=== PATIENT | female | born 1955 | race African-American/Black ===

== ENCOUNTER 2023-07-04 13:51 | Emergency (ER) | payer MEDICARE, SELFPAY ==
--- NOTE | ~2023-07-04 | XR_ITS ---
EXAMINATION: X-RAY LEFT ANKLE and LEFT FOOT CLINICAL INFORMATION: Pain, injury. COMPARISON: None. TECHNIQUE: 2 views of the left ankle and 3 views of the left foot. FINDINGS: Left ankle: Nonspecific soft tissue swelling. No fracture or subluxation. Left foot: Malalignment of the second tarsometatarsal joint with lateral displacement of the first through fifth metatarsals. Suggestion of small fracture fragments adjacent to the second tarsometatarsal joint, binu sign . Surrounding soft tissue swelling. Moderate multifocal degenerative osteoarthritis. XR/XR ankle LT min 3V IMPRESSION: Lisfranc fracture-dislocation in the left foot.
--- NOTE | ~2023-07-04 | XR_ITS ---
EXAMINATION: X-RAY LEFT ANKLE and LEFT FOOT CLINICAL INFORMATION: Pain, injury. COMPARISON: None. TECHNIQUE: 2 views of the left ankle and 3 views of the left foot. FINDINGS: Left ankle: Nonspecific soft tissue swelling. No fracture or subluxation. Left foot: Malalignment of the second tarsometatarsal joint with lateral displacement of the first through fifth metatarsals. Suggestion of small fracture fragments adjacent to the second tarsometatarsal joint, binu sign . Surrounding soft tissue swelling. Moderate multifocal degenerative osteoarthritis. XR/XR foot LT min 3V IMPRESSION: Lisfranc fracture-dislocation in the left foot.
--- NOTE | 2023-07-04 14:00 | ED.GENADULT ---
HPI - General Adult General Chief complaint: Extremity Injury, Lower Stated complaint: FELL OFF STEP LADDER L ANKLE PAIN Time Seen by Provider: 07/04/23 13:59 Source: patient and EMS Mode of arrival: EMS Limitations: no limitations History of Present Illness HPI narrative: Patient is a 67 year old female with a history of COPD, HTN, and DM presenting to the ED for left knee, leg and foot pain after falling two steps down a step stool about an hour ago. Patient reports tenderness on the lateral side of the left ankle and describes the pain as 8/10. Patient denies feeling dizzy or lightheaded prior to the fall, does not report any head trauma, LOC, CP, nor SOB. MD complaint: Left leg pain Onset (ago): hour(s) (1) Location: left and lower extremity (Left knee to foot) Radiation: non-radiation Severity: mild Severity scale (1-10): 3 Quality: constant Pain Consistency: constant Relieving factors: none Exacerbating factors: movement Associated symptoms: denies other symptoms Treatments prior to arrival: none Related Data Previous Rx's Medication Instructions Recorded oxycodone 5 mg tablet 5 mg PO Q6H PRN pain #5 tabs 07/04/23 Allergies Allergy/AdvReac Type Severity Reaction Status Date / Time No Known Allergies Allergy Verified 07/04/23 14:00 Review of Systems Constitutional: Constitutional: Reports no additional constitutional complaints, Denies chills, Denies fever(s), Denies night sweats and Denies weakness Eyes: Eyes: Reports no additional eye complaints, Denies blurry vision, Denies change in vision, Denies diplopia, Denies eye discharge, Denies loss of vision and Denies eye pain ENT: Denies vertigo and Denies dizziness Cardiovascular: Cardiovascular: Reports no additional cardiovascular complaints, Denies chest pain, Denies lightheadedness, Denies Loss of Consciousness and Denies dyspnea Respiratory: Respiratory: Reports no additional respiratory complaints and Denies dyspnea Gastrointestinal: Gastrointestinal: Reports no additional gastrointestinal complaints, Denies abdominal pain, Denies melena, Denies hematochezia, Denies change in bowel habits and Denies change in stool character Genitourinary: Genitourinary: Denies hematuria, Denies urinary frequency, Denies dysuria, Denies urinary incontinence, Denies urinary hesitancy and Denies urinary urgency Musculoskeletal: Musculoskeletal: Denies numbness and Denies tingling Comments: left foot and ankle pain Neurologic: Denies vertigo, Denies dizziness, Denies loss of vision, Denies numbness, Denies tingling and Denies weakness Psychiatric: Psychiatric: Reports no additional psychiatric complaints Endocrine: Endocrine: Reports no additional endocrine complaints Hematologic/Lymphatic: Hematologic/Lymphatic: Reports no additional hematologic/lymphatic complaints Allergic/Immunologic: Allergic/Immunologic: Reports no additional allergic/immunologic complaints [facility] [place] Past Medical History Attestation statement: The following information was validated with the patient. Source: old records reviewed and nursing notes reviewed Social History Social History Advance Directives: No Advance Directives Information Provided: Yes Physical Exam ED Vital Signs: Vital Signs - 24 hr 07/04/23 14:34 07/04/23 16:40 Temperature 97.2 F 98.1 F Pulse Rate 73 76 Respiratory Rate 19 20 Blood Pressure 144/78 H 136/74 Pulse Oximetry 94 97 Oxygen Delivery Method Room Air Room Air BMI result Body Mass Index 37.8 Const General: cooperative, alert, awake and in distress Nutritional Appearance: average body habitus Orientation/consciousness: patient oriented x3 Limitations: no limitations HENMT Head: Yes normal to inspection Ears: hearing grossly normal bilaterally General nose exam: Normal external nose present Face and sinus: Yes normal facial exam Mouth: Normal oral and palatal mucosa present, no drooling and no muffled voice Eyes General: appearance normal, both eyes and all related structures Periorbital: periorbital findings normal Eyelids: Yes eyelids normal Conjunctivae: conjunctivae normal Pupils: Equal, round and reactive pupils present EOM: EOMs intact bilaterally Neck Neck: Yes normal visual inspection, Yes full ROM and Yes no lymphadenopathy Chest Chest palpation & inspection: normal inspection of the chest Resp Effort & Inspection: normal respiratory effort and able to speak in complete sentences Auscultation: clear to auscultation bilaterally Cardio Jugular venous distension: no JVD Palpation: normal PMI Rate: regular rate Rhythm: regular rhythm GI Inspection: Yes normal to inspection Neuro General: patient oriented x3 Cranial nerves: Yes Equal, round and reactive pupils present Cognition (Neuro): normal cognition Motor exam (neuro): 5/5 motor strength present throughout Sensory Exam: Normal double simultaneous stimulation for sensation Coordination: [id number] test normal Extrem Other: swelling present to the left ankle and dorsal left foot, pain with palpation of the dorsal left foot and with ROM of the left lower extremity General: Yes full ROM and Yes capillary refill normal Left lower extremity: normal capillary refill Psych Appearance: grossly normal Mental Status: mental status grossly normal Affect: normal affect Attitude: cooperative Thought process: Normal thought process present Thought content: Normal thought content present Insight: Good insight present (Psych) Medications Administered Discontinued Medications Generic Name Dose Route Start Last Admin Trade Name Aminata PRN Reason Stop Dose Admin Ketorolac Tromethamine 15 mg 07/04/23 15:44 07/04/23 16:51 Ketorolac Tromethamine 15 Mg/Ml Vial IM 07/04/23 15:45 15 mg ONCE ONE Administration Procedures Orthopedic Splinting/Casting Injury #1: Side: left Lower Extremity Injury Location: ankle and foot Lower Extremity Immobilizer: posterior splint Other Orthopedic Equipment: crutches Medical Decision Making Medical Decision Making MDM Narrative: Patient is a 67 year old assigned female at with a history of COPD, HTN, and DM presenting to the emergency department today with left foot and ankle pain. Patient's physical exam was as noted in the physical exam portion of this note. Patient's left foot and ankle x-rays showed a lisfranc fracture-dislocation. I consulted the orthopedic team who recommended posterior short leg splint, non weight bearing and following up with orthopedics. I explained my physical exam findings as well as all test results to the patient. I answered all questions asked by the patient. Patient's left foot was placed in a posterior short leg splint without incident. Patient's PMS was intact prior to and after splint placement. Patient was given crutches with crutch instructions. I stressed the importance of the patient taking her medication as prescribed. I stressed the importance of the patient following up with her primary care provider and an orthopedic provider. I stressed the importance of the patient returning to the emergency department immediately if her symptoms were to worsen or if she were to develop any dizziness, shortness of breath, difficulty breathing, chest pain, blurry vision, loss of vision, nausea, vomiting, abdominal pain, fever, chills, back pain, or any other complaints. Patient verbalized agreement and understanding with this treatment plan and discharge. Differential Diagnosis Differential Diagnoses: The differential diagnosis associated with the presentation includes Lisfranc fracture / dislocation Foot fracture Ankle fracture Admission/Observation Consideration of admission/observation: Escalation of care including admission/observation considered Patient would have been admitted to the hospital had her work up had any findings where hospital admission was appropriate and her clinical presentation warranted hospital admission. Consult Healthcare Provider Management of the patient was discussed with: [employer] Technician (spoke with the orthopedic provider as noted in the MDM Rationale portion of this note.) Independent Interpretation I performed an independent interpretation of an: Plain X-Ray Interpretation: My interpretation is in agreement with the radiologist's impression of these imaging studies. EXAMINATION: X-RAY LEFT ANKLE and LEFT FOOT CLINICAL INFORMATION: Pain, injury. COMPARISON: None. TECHNIQUE: 2 views of the left ankle and 3 views of the left foot. FINDINGS: Left ankle: Nonspecific soft tissue swelling. No fracture or subluxation. Left foot: Malalignment of the second tarsometatarsal joint with lateral displacement of the first through fifth metatarsals. Suggestion of small fracture fragments adjacent to the second tarsometatarsal joint, binu sign . Surrounding soft tissue swelling. Moderate multifocal degenerative osteoarthritis. XR/XR foot LT min 3V IMPRESSION: Lisfranc fracture-dislocation in the left foot. Dictated By: Olga Peters Signed By: Electronically signed by Olga Peters 07/04/23 1529 Radiology Impression Discussion of test interpretation with radiology: I have reviewed the radiologist's reading. Independent Historian Clinical information obtained from an independent historian. History obtained from or confirmed by: EMS (EMS provided additional history and confirmed the history provided by the patient.) Tests considered The following testing was considered but not selected: CT scan of the head and neck were considered given the patient is >65 years old and sustained a fall. However, the patient refused. Prescription Management I considered prescription management with: Pain Medication (patient prescribed pain medication.) Chronic Conditions Patient?s care impacted by: Diabetes and Hypertension Critical Care Time Critical Care Time Critical Care Time: Yes Total Critical Care Time: 45 Attestation: I spent 45 minutes of Critical Care Time with this patient. This does not include time spent on separately reported billable procedures. Discharge Plan Discharge Clinical Impression: Lisfranc's dislocation, Foot fracture Patient Disposition: Home, Self-Care Instructions: Crutch Instructions (ED), Foot Fracture in Adults (ED) Additional Instructions: Follow up with your primary care provider and an orthopedic provider. Do NOT put any weight on the left lower extremity. Do NOT get the splint wet. Do NOT remove the splint. If you notice any numbness or tingling in your toes, you may loosen the ELANA wrap. If you find yourself loosening the ELANA wrap to the point of seeing the underlying splint material, return to the emergency department immediately. Return to the emergency department immediately if your symptoms worsen or if you develop any dizziness, shortness of breath, difficulty breathing, chest pain, blurry vision, loss of vision, nausea, vomiting, abdominal pain, fever, chills, back pain, or any other complaints. Prescriptions: New oxycodone 5 mg tablet 5 mg PO Q6H PRN (Reason: pain) Qty: 5 0RF Rx Instructions: Partial Fill upon patient request. Referrals: [facility] [place] [facility] [Provider Group] (Call to establish and follow up with an orthopedic provider. ) [facility] [Outside] (Call to establish and follow up with an ankle / foot gatherer. ) Gt Jade MD [Primary Care Provider] - Interventions: ED Discharge Assessment Last Done: 07/04/23 17:06 Discharge Date/Time: 07/04/23 17:00 Print Language: Welsh
[2023-07-04 14:05] VITALS: BP 140/92; PULSE 74; O2SAT 96
[2023-07-04 14:34] VITALS: BP 144/78; PULSE 73; RESP 19; TEMP 36.2; O2SAT 94; BMI 37.8
[2023-07-04 16:40] VITALS: BP 136/74; PULSE 76; RESP 20; TEMP 36.7; O2SAT 97
[2023-07-04] MEDS: Ketorolac Tromethamine 15 MG/ML VIAL IM (16:51)
== END 2023-07-04 17:00 | disposition home or self-care (01) ==
PROVIDERS: Emergency Provider Student in an Organized Health Care Education/Training Program; PCP Internal Medicine
DX: S92.902A Unspecified fracture of left foot, initial encounter for closed fracture (principal); S93.305A Unspecified dislocation of left foot, initial encounter; M79.672 Pain in left foot; W11.XXXA Fall on and from ladder, initial encounter; Y93.9 Activity, unspecified; Y92.9 Unspecified place or not applicable; Y99.8 Other external cause status
CPT/HCPCS: 29515; 73610; 73630; 96372; 99284; J1885

== ENCOUNTER 2023-10-13 16:24 | Emergency (ER) | payer MEDICARE, SELFPAY ==
--- NOTE | ~2023-10-13 | CT_ITS ---
EXAMINATION: CT HEAD WITHOUT CONTRAST CLINICAL INFORMATION: Shaking COMPARISON: None available. TECHNIQUE: Contiguous axial imaging was performed from the skull base to vertex without intravenous administration of contrast. This CT examination was performed using dose optimization techniques as appropriate, variously including the following: *Automated exposure control *Adjustment of mA and/or kV according to patient size (this includes techniques or standardized protocols for targeted exams where dose is matched to indication/reason for exam; i.e. extremities or head) *Use of iterative reconstruction technique DLP: 603 mGy-cm FINDINGS: The ventricles and sulci are normal in size and configuration. No focal parenchymal lesions of the brain or abnormal extra-axial fluid collections identified. No intracranial hemorrhage, tumors or acute infarcts noted. Mild segmental calcific atherosclerotic plaques are present in the cavernous portions of the internal carotid arteries. The orbits and globes are normal in appearance. No significant opacification of the visualized paranasal sinuses, mastoid air cells and middle ear cavities. CT/CT head/brain wo IV con IMPRESSION: No acute intracranial abnormalities.
--- NOTE | ~2023-10-13 | XR_ITS ---
EXAMINATION: XR LUMBOSACRAL SPINE CLINICAL INFORMATION: Pain COMPARISON: None available. TECHNIQUE: Three views of the lumbosacral spine. FINDINGS: 9 mm anterior subluxation of L4 with respect L5. Bone alignment is otherwise normal. No fracture or dislocation. Bones may be osteopenic. Degenerative disc disease at L4-L5 and L5-S1. Lower lumbar spine facet arthritis. XR/XR lumbar spine 2-3V IMPRESSION: Degenerative changes of the lower lumbar spine. 9 mm anterior subluxation of L4 with respect to L5 probably secondary to facet arthritis.
[2023-10-13 16:40] VITALS: BP 123/69; BP 140/86; PULSE 100; PULSE 101; RESP 18; TEMP 36.6; O2SAT 94; O2SAT 97; BMI 39.6
--- NOTE | 2023-10-13 16:53 | PC.NURSE ---
Pt presents to ED via EMS for full body shaking. Reports for past approx 6 months, intermittent full body shaking that worsens with walking. Pt remains alert and oriented during these episodes. Reports fall in july in which she broke her toe, no other recent falls or illnesses. Alert and oriented, breathing even and unlabored, skin warm and dry. Reports lower back pain, chronic and aching. Reports multiple months clean from drugs.
--- NOTE | 2023-10-13 17:26 | ED_ITS ---
HPI - General Adult General Chief complaint: General Medical Stated complaint: anxiety Time Seen by Provider: 10/13/23 17:22 Source: patient Mode of arrival: ambulatory Limitations: no limitations History of Present Illness ED Provider: Wesley Red PA-C HPI narrative: 67 yold female with pmh of DM, HTN, and chronic back pain presents to the ED for random episodes shaking after she walks. Patient states this has been occurring for the past 6 months. Patient denies any headache, nausea, vomitting, slurred speech, facial droop, paralysis of extremities, fever, or chills. Patient states pmh of alcohol abuse, but has been clean for 2 years and has not had any withdrawal. 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 Patient also states chronic back pain exacerbation. Patient denies any recent trauma. Patient denies any urinary/bowel incontinence or IV drug use. Patient states history of lumbar disc bulging. Patient has known Lisfranc foot fracture that required surgery that is scheduled for next month Related Data Previous Rx's ?Medication ?Instructions ?Recorded oxycodone 5 mg tablet 5 mg PO Q6H PRN pain (scale score 07/05/23 7-10) #5 tabs acetaminophen 325 mg capsule 325 mg PO Q6H PRN pain 8 days #28 10/14/23 (Tylenol) caps Allergies Allergy/AdvReac Type Severity Reaction Status Date / Time egg AdvReac Abdominal Verified 10/13/23 16:43 Pain ibuprofen AdvReac Abdominal Verified 10/13/23 16:38 Pain tramadol AdvReac Abdominal Verified 10/13/23 16:38 Pain Review of Systems 2 Review of Systems: Random tremors for the past 6 months. Chronic back Yes all other systems are reviewed and are negative [facility] Social History Social History Smoked in Last 30 Days: Yes Use of substances other than those prescribed or required for medical reasons: No Advance Directives: No Advance Directives Information Provided: No Physical Exam ED Vital Signs: Vital Signs - 24 hr 10/13/23 16:40 10/13/23 20:09 10/13/23 22:57 Temperature 97.8 F 97.8 F 97.2 F Pulse Rate 101 H 77 76 Respiratory Rate 18 16 16 Blood Pressure 123/69 132/63 106/57 L Pulse Oximetry 94 98 95 Oxygen Delivery Method Room Air Room Air Room Air BMI result Body Mass Index 39.6 Const General: cooperative, healthy appearing, comfortable, no acute distress, well developed, alert and awake Orientation/consciousness: oriented to person, oriented to place, oriented to time and patient oriented x3 HENMT Head: Yes normal to inspection, Yes No palpable skull fracture present, Yes normocephalic, Yes atraumatic and No abrasion Eyes Other: Negative nystagmus General: appearance normal, both eyes and all related structures Neck Neck: Yes normal visual inspection, Yes full ROM, Yes no lymphadenopathy, Yes no meningeal signs, Yes trachea midline, Yes supple, No anterior neck swelling and No tender Chest Chest palpation & inspection: normal inspection of the chest and normal palpation of entire chest wall Resp Effort & Inspection: normal respiratory effort and able to speak in complete sentences Auscultation: clear to auscultation bilaterally Cardio Jugular venous distension: no JVD Heart sounds: S1 normal heart sound present and S2 normal heart sound present GI Inspection: Yes normal to inspection Palpation (GI): Soft to palpation, not firm, nontender, no guarding and not rigid General: Yes no CVA tenderness Back/Spine/Pelvis Back: no CVA tenderness and back tenderness (lumbar) Skin General skin exam: no rashes or lesions noted, elasticity normal and turgor normal Neuro Other: Negative for any tremors. NIH score is 0. Negative nystagmus General: oriented to person, oriented to place, oriented to time, patient oriented x3, gait normal, tone normal, moves all extremities, Normal light touch and pain sensation, no meningeal signs, no focal motor deficits, CN's II-XI intact bilaterally and normal sensation to monofilament Extrem General: Yes normal to inspection, Yes full ROM and Yes capillary refill normal Psych Appearance: grossly normal, well kempt and not disheveled Medical Decision Making Medical Decision Making MDM Narrative: 67 year female presents to the ED shaking intermittently for the past 6 months and also chronic low back pain. Negative for any neuro deficits. After walking around patient has no stroke-like activity. Patient states being clean of alcohol and drugs for a while. I suspect alcohol withdrawal. Will do labs check for electrolyte deficiency. Not suspecting cardiac activity. No need for troponin EKG. Not suspecting myocardial infarction. NIH score 0 not suspect a stroke. Presently no need for head CT Scan. 9:26pm.: Patient called me over and informed that she was shaking. Patient was having generalized tremors in front of me but was talking and awake. Patient never lost consciousness. There was no foaming of the mouth. There was no urinary bowel incontinence. He was holding a drink at the same time and they drank never fell. Will send for head CT scan to check for mass with a very unlikely. Probably pseudo-seizure or psychosomatic. 12:03am: Head CT scan is normal. Patient alert oriented x3. Patient has normal gait. Patient is presently asymptomatic. Patient not having any tremors. Not believe patient had a seizure. Probably psychosomatic or pseudo-seizure. Patient informed to follow-up with neurologist and primary care provider. Patient ED for food drink water Differential Diagnosis Differential Diagnoses: The differential diagnosis associated with the presentation includes (Chronic back pain, lumbar radiculopathy) Admission/Observation Consideration of admission/observation: Escalation of care including admission/observation considered Lab Data [facility] Lab Attestation statement: I reviewed the patient's lab results. 10/13/23 18:21 10/13/23 18:21 Labs: Lab Results 10/13/23 10/13/23 Range/Units 18:21 18:25 WBC 7.9 (4.8-10.8) X10*3/uL RBC 5.43 (4.20-5.50) X10*6/uL Hgb 12.5 (12.0-16.0) g/dl Hct 40.0 (37.0-47.0) % MCV 73.7 L (80.0-98.0) fL MCH 23.0 L (27.0-33.0) pg MCHC 31.3 (31.0-35.0) g/dl RDW 15.2 (11.0-16.0) % Plt Count 228 (160-400) X10*3/uL MPV 10.5 (9.4-12.3) fL Immature Gran % (Auto) 0.3 (0.0-0.4) % Neut % (Auto) 48.4 (45-73) % Lymph % (Auto) 33.5 (20-40) % [place] % (Auto) 14.4 H (2-11) % Eos % (Auto) 2.9 (0-4) % Baso % (Auto) 0.5 (0-2) % Lymph # (Auto) 2.6 (1.2-4.9) X10*3/uL [place] # (Auto) 1.1 (0.1-1.2) X10*3/uL Eos # (Auto) 0.2 (0.0-0.4) X10*3/uL Baso # (Auto) 0.0 (0.0-0.2) X10*3/uL Abs Immat Gran (auto) 0.02 (0.00-0.03) X10*3/uL Absolute Neuts (auto) 3.8 (2.0-8.3) x10*3/uL Absolute Nucleated RBC 0.000 (0.0-0.012) X10*3/uL Nucleated RBC % (auto) 0.0 (0.0-0.2) /100WBC Sodium 140 (135-145) mmol/L Potassium 4.0 (3.3-5.1) mmol/L Chloride 108 (96-108) mmol/L Carbon Dioxide 25 (22-29) mmol/L Anion Gap 11 L (12-20) BUN 16 (9-16) mg/dL Creatinine 0.93 (0.5-1.4) mg/dL Estim Creat Clear Calc 77.8 Estimated GFR > 60 Random Glucose 100 (60-115) mg/dL Calcium 9.8 (8.4-10.2) mg/dL Magnesium 2.2 (1.6-2.6) mg/dL Total Bilirubin 0.3 (0.0-1.0) mg/dL AST 16 (5-31) U/L ALT 15 (0-31) U/L Alkaline Phosphatase 92 (39-117) U/L Total Protein 8.0 (6.5-8.0) g/dL Albumin 3.8 (3.5-5.0) g/dL Urine Color Yellow Urine Appearance Clear Urine pH 5.5 (5.0-9.0) Ur Specific [place] 1.025 (1.005-1.025) Urine Protein Negative (Neg-Trace) mg/dL Urine Glucose (UA) >=1000 H (Negative) mg/dL Urine Ketones Trace (Negative) mg/dL Urine Blood Negative (Negative) Urine Nitrite Negative (Negative) Ur Leukocyte Esterase Trace H (Negative) Urine RBC 3-5 H (0-2) /HPF Urine WBC 0-5 (0-5) /HPF Ur Squamous Epith Cells 3-5 (0-2) /HPF Urine Bacteria 1+ (None Seen) Hyaline Casts 0-2 (0-2) /LPF Urine Opiates Screen Not Detected (Not Detect) Ur Buprenorphine Scrn Not Detected (Not Detect) ng/mL Ur Oxycodone Screen Not Detected (Not Detect) ng/mL Urine Methadone Screen Not Detected (Not Detect) ng/mL Urine Fentanyl Screen Not Detected (Not Detect) Ur Barbiturates Screen Not Detected (Not Detect) Ur Phencyclidine Scrn Not Detected (Not Detect) Ur Amphetamines Screen Not Detected (Not Detect) U Benzodiazepines Scrn Not Detected (Not Detect) Urine Cocaine Screen Not Detected (Not Detect) U Marijuana (THC) Screen Not Detected (Not Detect) Ethyl Alcohol < 10 mg/dL Independent Interpretation I performed an independent interpretation of an: Plain X-Ray and CT Scan Radiology Impression Discussion of test interpretation with radiology: I have reviewed the radiologist's reading. Independent Historian Clinical information obtained from an independent historian. History obtained from or confirmed by: Other (patient) External Record Review External record reviewed: Other (prior visits) Prescription Management I considered prescription management with: Pain Medication Discharge Plan Discharge Clinical Impression: Tremor, Lumbar radiculopathy Patient Disposition: Home, Self-Care Instructions: Lumbar Radiculopathy (ED), Tremors (ED) Additional Instructions: Recommend follow-up with primary care provider and neurologist. Recommend follow-up to the ED dizziness, nausea, vomiting, slurred speech, facial droop, paralysis of extremities, weakness, abdominal pain, urinary/bowel incontinence, dysuria, hematuria, fever, chills, intractable tremors, seizures, or any other concerning symptoms. Labs and head CT scan came back normal. Prescriptions: New acetaminophen [Tylenol] 325 mg capsule 325 mg PO Q6H PRN (Reason: pain) 8 Days Qty: 28 0RF No Action oxycodone 5 mg tablet 5 mg PO Q6H PRN (Reason: pain (scale score 7-10)) Qty: 5 0RF Rx Instructions: Partial Fill upon patient request. Referrals: Candido Weber MD [Physician] - (random tremors) Interventions: ED Discharge Assessment Last Done: 10/14/23 00:53 Discharge Date/Time: 10/14/23 01:02 Print Language: Slovak
[2023-10-13 18:25] LABS: MANUAL DIFF FLAG NO
[2023-10-13 18:26] LABS: Basophils Percent Auto 0.5 % (0-2); Eosinophils Absolute Auto 0.2 X10*3/uL (0.0-0.4); Eosinophils Percent Auto 2.9 % (0-4); Hemoglobin 12.5 g/dl (12.0-16.0); Imm Gran Abs Auto 0.02 X10*3/uL (0.00-0.03); Imm Gran Pct Auto 0.3 % (0.0-0.4); Lymphocytes Absolute Auto 2.6 X10*3/uL (1.2-4.9); Lymphocytes Percent Auto 33.5 % (20-40); Mean Corpuscular HGB Conc 31.3 g/dl (31.0-35.0); Mean Corpuscular Volume 73.7 fL (80.0-98.0); Mean Platelet Volume 10.5 fL (9.4-12.3); Monocytes Absolute Auto 1.1 X10*3/uL (0.1-1.2); Monocytes Percent Auto 14.4 % (2-11); Neutrophils Absolute Auto 3.8 x10*3/uL (2.0-8.3); Neutrophils Percent Auto 48.4 % (45-73); Platelet Count 228 X10*3/uL (160-400); Red Blood Count 5.43 X10*6/uL (4.20-5.50); Red Cell Distribution Width 15.2 % (11.0-16.0); White Blood Count 7.9 X10*3/uL (4.8-10.8)
[2023-10-13 18:31] LABS: Appearance Urine Clear; Color Urine Yellow; Glucose Urine UA >=1000 mg/dL (Negative); Leukocyte Esterase Urine Trace (Negative); Nitrite Urine Negative (Negative); PH 5.5 (5.0-9.0); Specific Gravity - Urine 1.025 (1.005-1.025); UMIC TRIGGER UACC YES; Urine Blood Negative (Negative); Urine Ketones Trace mg/dL (Negative); Urine Protein Negative (Neg-Trace)
[2023-10-13 18:39] LABS: Ethanol < 10 mg/dL
[2023-10-13 18:42] LABS: Amphetamine Screen Urine Not Detected (Not Detect); Barbiturates, Urine Not Detected (Not Detect); Benzodiazepines Screen Urine Not Detected (Not Detect); Buprenorphine Scr Not Detected (Not Detect); Cannabinoid Screen Urine Not Detected (Not Detect); Cocaine Screen Urine Not Detected (Not Detect); Fentanyl, urine Not Detected (Not Detect); Methadone Screen, Urine Not Detected (Not Detect); Opiate Screen Urine Not Detected (Not Detect); Oxycodone Screen Urine Not Detected (Not Detect); Phencyclidine Screen Urine Not Detected (Not Detect)
[2023-10-13 18:42] LABS: Alanine Aminotransferase 15 U/L (0-31); Albumin Level 3.8 g/dL (3.5-5.0); Alkaline Phosphatase 92 U/L (39-117); Anion Gap 11 (12-20); Aspartate Amino Transferase 16 U/L (5-31); Bilirubin Total 0.3 mg/dL (0.0-1.0); Blood Urea Nitrogen 16 mg/dL (9-16); Calcium 9.8 mg/dL (8.4-10.2); Carbon Dioxide 25 mmol/L (22-29); Chloride 108 mmol/L (96-108); Creatinine Clr Calc Pharmacy 77.8; Estimated Glomerular Filt Rate > 60; Glucose Random 100 mg/dL (60-115); Magnesium 2.2 mg/dL (1.6-2.6); Sodium 140 mmol/L (135-145)
[2023-10-13 18:54] LABS: Bacteria Urine 1+ (None Seen); Hyaline Casts Urine 0-2 /LPF (0-2); WBC Urine 0-5 /HPF (0-5)
--- NOTE | 2023-10-13 19:30 | PC.NURSE ---
This RN assumed pt care @ 1900. Pt resting in bed comfortably, no signs of distress, ca&ox4. Pt requesting and given drink. Plan of care ongoing.
--- NOTE | 2023-10-13 19:31 | PC.NURSE ---
Per provider Wesley ok for pt to have something to drink at this time.
[2023-10-13 20:09] VITALS: BP 132/63; PULSE 77; RESP 16; TEMP 36.6; O2SAT 98
--- NOTE | 2023-10-13 20:26 | PC.NURSE ---
Pt requested and given food. Plan of care ongoing.
--- NOTE | 2023-10-13 22:36 | PC.NURSE ---
Pt requested and given food and drink. Plan of care ongoing.
[2023-10-13 22:57] VITALS: BP 106/57; PULSE 76; RESP 16; TEMP 36.2; O2SAT 95
[2023-10-14 00:20] VITALS: BP 114/58; PULSE 82; RESP 16; TEMP 36.7; O2SAT 95
[2023-10-14 00:53] VITALS: BP 114/58; PULSE 82; RESP 16; TEMP 36.7; O2SAT 95
== END 2023-10-14 01:02 | disposition home or self-care (01) ==
PROVIDERS: Physician Assistant; Emergency Provider Internal Medicine; PCP Internal Medicine
DX: R25.1 Tremor, unspecified (principal); M54.16 Radiculopathy, lumbar region; M54.50 Low back pain, unspecified; F41.9 Anxiety disorder, unspecified; F10.11 Alcohol abuse, in remission
CPT/HCPCS: 36415; 70450; 72100; 80053; 80307; 81001; 83735; 85025; 99284

== ENCOUNTER → 2024-04-05 06:47 | Outpatient (BNV) | payer MEDICARE, SELFPAY | PROVIDERS: Emergency Provider Emergency Medicine; PCP Internal Medicine; Visit Provider Internal Medicine Cardiovascular Disease | DX: R94.31 Abnormal electrocardiogram [ECG] [EKG] (principal) | CPT/HCPCS: 93010 ==

== ENCOUNTER 2024-04-05 06:48 | Emergency (ER) | payer MEDICARE, SELFPAY ==
[2024-04-05] VITALS (8 sets, daily range): BP systolic 110–134; BP diastolic 62–75; PULSE 80–98; RESP 16–26; TEMP 36.3; O2SAT 91–95; BMI 39.4
--- NOTE | 2024-04-05 | ECG_ITS ---
Test Reason : CHEST PAIN/SOB Blood Pressure : / mmHG Vent. Rate : 089 BPM Atrial Rate : 089 BPM P-R Int : 178 ms QRS Dur : 088 ms QT Int : 380 ms P-R-T Axes : 060 022 045 degrees QTc Int : 462 ms Normal sinus rhythm Possible Anterior infarct , age undetermined Abnormal ECG No previous ECGs available Referred By: Generic ED Physician Electronically Signed By:Kostas Tobar
--- NOTE | ~2024-04-05 | CT_ITS ---
EXAMINATION: CT CHEST WITHOUT CONTRAST CLINICAL INFORMATION: Cough. Shortness of breath. COMPARISON: None available. TECHNIQUE: Multidetector volumetric CT imaging of the chest was done. Axial MIP volume rendering provided. Sagittal and coronal reformatted images were obtained. This CT examination was performed using dose optimization techniques as appropriate, variously including the following: *Automated exposure control *Adjustment of mA and/or kV according to patient size (this includes techniques or standardized protocols for targeted exams where dose is matched to indication/reason for exam; i.e. extremities or head) *Use of iterative reconstruction technique DLP: 451 mGy-cm FINDINGS: No consolidation, pleural effusion or pneumothorax. Confluent patchy pulmonary groundglass in the periphery of the lower lobes and to a lesser extent posterior segment and apical posterior segments both upper lobes. The respiratory airways patent. No bronchiectasis. No honeycombing. No gross pulmonary nodules. No gross lymphadenopathy, mediastinum. Calcified plaque in the thoracic aorta wall and the origin of the main branches. No gross aneurysm in the thoracic aorta. Calcified plaques in the coronary arteries. No pericardial effusion. Mild prominent thyroid gland. Small hiatal hernia. Exophytic cystic lesion in the right kidney. Probable nonobstructing nephrolithiasis, left kidney. Multilevel cervical thoracic spondylosis. Likely old superior endplate compression deformity representing 20% volume loss at T4 CT/CT chest wo IV con IMPRESSION: No acute airspace disease. Mild interstitial lung edema should be considered in the correct clinical settings. Fleischner guidelines were followed. Electronically signed by: Dakota Gallagher MD 04/05/2024 01:24 PM RON
--- NOTE | ~2024-04-05 | XR_ITS ---
EXAMINATION: XR CHEST CLINICAL INFORMATION: Cough. COMPARISON: None available. TECHNIQUE: 2 views of the chest were obtained. FINDINGS: Lung volumes are low. There is no gross pneumothorax. Mild degenerative changes in the thoracic spine. Prominent cardiac mediastinal silhouette difficult to evaluate fully due to low lung volumes. Mild bibasilar streaky opacities, left greater than right, with possible trace left pleural effusion. Pleural thickening along the lateral aspects of the bilateral [id number] lungs, left greater than right. Mild superior endplate cavity of the adjacent upper thoracic vertebral bodies of indeterminate age. XR/XR chest 2V IMPRESSION: 1. Mild bibasilar streaky opacities, left greater than right, with possible trace left pleural effusion. Pleural thickening along the lateral aspects of the bilateral [id number] lungs, left greater than right. CT scan of the chest could be considered for further evaluation. 2. Mild superior endplate cavity of the adjacent upper thoracic vertebral bodies of indeterminate age. This study was presented today April 05, 2024 for interpretation. Stat results provided at this time as requested by referring provider. Electronically signed by: Rosa Garner MD 04/05/2024 10:19 AM RON
[2024-04-05 07:28] LABS: MANUAL DIFF FLAG NO
[2024-04-05 07:30] LABS: Basophils Absolute Auto 0.1 X10*3/uL (0.0-0.2); Basophils Percent Auto 0.7 % (0-2); Eosinophils Absolute Auto 0.3 X10*3/uL (0.0-0.4); Eosinophils Percent Auto 4.3 % (0-4); Hematocrit 39.4 % (37.0-47.0); Hemoglobin 12.2 g/dl (12.0-16.0); Imm Gran Abs Auto 0.02 X10*3/uL (0.00-0.03); Imm Gran Pct Auto 0.3 % (0.0-0.4); Lymphocytes Absolute Auto 1.8 X10*3/uL (1.2-4.9); Mean Platelet Volume 10.4 fL (9.4-12.3); Monocytes Absolute Auto 0.9 X10*3/uL (0.1-1.2); Monocytes Percent Auto 13.2 % (2-11); Neutrophils Absolute Auto 3.7 x10*3/uL (2.0-8.3); Neutrophils Percent Auto 54.5 % (45-73); Platelet Count 244 X10*3/uL (160-400); Red Blood Count 5.55 X10*6/uL (4.20-5.50); Red Cell Distribution Width 16.5 % (11.0-16.0); White Blood Count 6.8 X10*3/uL (4.8-10.8)
[2024-04-05 07:45] LABS: Alanine Aminotransferase 18 U/L (0-31); Albumin Level 3.8 g/dL (3.5-5.0); Alkaline Phosphatase 92 U/L (39-117); Anion Gap 12 (12-20); Aspartate Amino Transferase 21 U/L (5-31); Bilirubin Direct 0.2 mg/dL (0.0-0.5); Bilirubin Total 0.7 mg/dL (0.0-1.0); Blood Urea Nitrogen 16 mg/dL (9-16); Calcium 9.2 mg/dL (8.4-10.2); Carbon Dioxide 23 mmol/L (22-29); Chloride 113 mmol/L (96-108); Creatinine Clr Calc Pharmacy 79.1; Estimated Glomerular Filt Rate > 60; Glucose Random 102 mg/dL (60-115); Lipase 28 U/L (8-78); Potassium 3.5 mmol/L (3.3-5.1); Sodium 144 mmol/L (135-145); Total Protein 7.5 g/dL (6.5-8.0)
[2024-04-05 07:49] LABS: Troponin-I High Sensitivity 3.1 ng/L (<3.5-17.0)
[2024-04-05 07:57] LABS: Appearance Urine Clear; Color Urine Yellow; Glucose Urine UA >=1000 mg/dL (Negative); Leukocyte Esterase Urine Trace (Negative); Nitrite Urine Negative (Negative); Specific Gravity - Urine >= 1.030 (1.005-1.025); UMIC TRIGGER UACC YES; Urine Blood Negative (Negative); Urine Ketones Negative (Negative); Urine Protein Trace mg/dL (Neg-Trace)
[2024-04-05 08:05] LABS: Bacteria Urine None Seen (None Seen); Hyaline Casts Urine 0-2 /LPF (0-2); Squamous Epithelial Cell Urine 0-2 /HPF (0-2); UACC Culture Trigger YES
[2024-04-05 08:06] LABS: Influenza A PCR NEGATIVE (Negative); Influenza B PCR NEGATIVE (Negative); Resp Syncy Virus RNA Qual PCR NEGATIVE (Negative); SARS COV2 PCR INHOUSE NEGATIVE (Negative)
--- NOTE | 2024-04-05 08:56 | ED_ITS ---
HPI - Chest Pain General Chief Complaint: Chest Pain Stated Complaint: CHEST PAIN Time Seen by Provider: 04/05/24 08:46 Source: patient, family, EMS, RN notes reviewed and old records reviewed Mode of arrival: ambulatory History of Present Illness ED Provider: Radha Andrade PA-C HPI narrative: 68-year-old female with a past medical history of asthma, COPD, presenting to the ED via EMS from sober house complaining of dry cough, SOB, chest discomfort x yesterday. Reports multiple sick contacts. Also reports pedal edema. Denies fever, chills, recent travel, history of clots, calf pain, dysuria /hematuria Related Data Previous Rx's ?Medication ?Instructions ?Recorded oxycodone 5 mg tablet 5 mg PO Q6H PRN pain (scale score 07/05/23 7-10) #5 tabs acetaminophen 325 mg capsule 325 mg PO Q6H PRN pain 8 days #28 10/14/23 (Tylenol) caps albuterol sulfate 90 mcg/actuation 2 puff inhalation Q4-6H PRN 04/05/24 aerosol inhaler shortness of breath or wheezing #6.7 grams furosemide 20 mg tablet (Lasix) 20 mg PO DAILY 3 days #3 tabs 04/05/24 polyethylene glycol 3350 17 17 g PO DAILY PRN constipation 04/05/24 gram/dose oral powder (Miralax) #119 grams prednisone 20 mg tablet 40 mg (2 x 20 mg) PO DAILY 5 days 04/05/24 #10 tabs Allergies Allergy/AdvReac Type Severity Reaction Status Date / Time egg AdvReac Abdominal Verified 04/05/24 07:04 Pain ibuprofen AdvReac Abdominal Verified 04/05/24 07:04 Pain tramadol AdvReac Abdominal Verified 04/05/24 07:04 Pain Review of Systems 2 Review of Systems: Yes all other systems are reviewed and are negative Constitutional: Constitutional: Reports as per HPI [facility] Past Medical History Attestation statement: The following information was validated with the patient. Source: old records reviewed Social History Social History Advance Directives: No Advance Directives Information Provided: Yes Do you have a plan to hurt others: No Plan Physical Exam 2 Vital Signs: Vital Signs: Last Vital Signs Temp 97.3 F 04/05/24 07:03 Pulse 98 04/05/24 14:25 Resp 18 04/05/24 14:25 BP 134/73 04/05/24 15:04 Pulse Ox 95 04/05/24 14:25 O2 Del Method Room Air 04/05/24 14:25 BMI result Body Mass Index 39.4 Const: General: cooperative, healthy appearing and no acute distress O rientation/consciousness: patient oriented x3 Limitations: no limitations HEENT: Head: Yes normal to inspection and Yes atraumatic Ears: hearing grossly normal bilaterally General nose exam: Normal external nose present Face and sinus: Yes normal facial exam Mouth: Normal oral and palatal mucosa present Throat: Yes posterior oropharynx normal Eyes: General: appearance normal, both eyes and all related structures EOM: EOMs intact bilaterally Neck: Neck: Yes normal visual inspection and Yes no meningeal signs Resp: Effort & Inspection: normal respiratory effort and no respiratory distress Auscultation: wheezes expiratory wheezes and lower bilaterally and diminished lung sounds diffuse Cardio: Rate: regular rate Heart sounds: S1 normal heart sound present and S2 normal heart sound present GI: Inspection: Yes normal to inspection Palpation (GI): Soft to palpation, nontender, no guarding and not rigid : General: Yes no CVA tenderness Back/Spine/Pelvis: Back: no CVA tenderness Skin: Rashes: no rashes Wounds: no wounds Neuro: General: patient oriented x3, tone normal and no meningeal signs C ranial nerves: Yes CN's II-XII intact bilaterally Gait exam (Neuro): Normal gait present Extrem: Other: 1+ bilateral LE pitting edema General: Yes no calf tenderness Course Course Course Narrative: - labs reassuring. Initial troponin negative > will obtain repeat - UA negative. Viral studies negative -1033-- repeat troponin without rise, mi unlikely XR chest 2V IMPRESSION: 1. Mild bibasilar streaky opacities, left greater than right, with possible trace left pleural effusion. Pleural thickening along the lateral aspects of the bilateral [id number] lungs, left greater than right. CT scan of the chest could be considered for further evaluation. 2. Mild superior endplate cavity of the adjacent upper thoracic vertebral bodies of indeterminate age. > will obtain chest CT for further eval 135-- CT chest wo IV con IMPRESSION: No acute airspace disease. Mild interstitial lung edema should be considered in the correct clinical settings. Fleischner guidelines were followed. > no evidence of severe sepsis. No infectious etiology at this time. Will give patient 40 mg of p.o. Lasix. >1506--on re-evaluation reports symptomatic improvement. Lungs CTA. Also requesting constipation medication. Plan to DC home with 3 days' worth of p.o. Lasix, 20 mg. No need for antibiotics at this time. Results discussed with patient including worrisome signs and symptoms and strict return precautions, and when to return to the emergency department. They verbalized understanding and feel safe for discharge at this time. Medications Administered Discontinued Medications Generic Name Dose Route Start Last Admin Trade Name Freq PRN Reason Stop Dose Admin Ceftriaxone Sodium 1 gm 04/05/24 10:36 04/05/24 11:27 Ceftriaxone Sodium 1 Gm Vial IVPUSH 04/05/24 10:37 1 gm ONCE ONE Administration Albuterol Sulfate 5 mg/ 0 mg 04/05/24 09:03 04/05/24 09:05 Albuterol/Ipratropium 3 ml INHALE 04/05/24 09:04 1 each ONCE ONE Administration Albuterol Sulfate 2.5 mg/ 0 mg 04/05/24 13:59 04/05/24 14:01 Albuterol/Ipratropium 3 ml INHALE 04/05/24 14:00 1 dose ONCE ONE Administration Furosemide 40 mg 04/05/24 13:54 04/05/24 15:04 Furosemide 40 Mg Tablet PO 04/05/24 13:55 40 mg ONCE ONE Administration Protocol Azithromycin 500 mg/ Sodium 250 mls @ 125 mls/hr 04/05/24 10:36 04/05/24 14:15 Chloride IV 04/05/24 12:35 Infused ONCE ONE Infusion Methylprednisolone Sodium Succinate 60 mg 04/05/24 08:53 04/05/24 09:21 Methylprednisolone Sod Succ 125 Mg/2 Ml Vial IVPUSH 04/05/24 08:54 60 mg ONCE ONE Administration Medical Decision Making Medical Decision Making MDM Narrative: 68-year-old female with a past medical history of asthma, COPD, presenting to the ED via EMS from sober house complaining of dry cough, SOB, chest discomfort x yesterday. on exam tachypneic, NAD, nontoxic appearing, talking in complete sentences, diminished lung sounds throughout with bibasilar expiratory wheeze. 1+ LE pitting edema, no calf tenderness. Concern for asthma / COPD exacerbation vs viral illness vs pneumonia vs CHF. Lower suspicion for acute ACS/ PE or DVT. Unlikely dissection Plan: EKG, labs, viral testing, CXR, ED brown protocol, IV Solu-Medrol, re- evaluate Please refer to course for remaining clinical decision making, interpretation of labs/imaging results, and discussions with consultants and/or family members. Differential Diagnosis Differential Diagnoses: The differential diagnosis associated with the presentation includes As above Admission/Observation Consideration of admission/observation: Escalation of care including admission/observation considered Lab Data MDM Lab Attestation statement: I reviewed the patient's lab results. 04/05/24 07:23 04/05/24 07:23 Labs: Lab Results 04/05/24 04/05/24 04/05/24 Range/Units 07:23 07:36 09:21 WBC 6.8 (4.8-10.8) X10*3/uL RBC 5.55 H (4.20-5.50) X10*6/uL Hgb 12.2 (12.0-16.0) g/dl Hct 39.4 (37.0-47.0) % MCV 71.0 L (80.0-98.0) fL MCH 22.0 L (27.0-33.0) pg MCHC 31.0 (31.0-35.0) g/dl RDW 16.5 H (11.0-16.0) % Plt Count 244 (160-400) X10*3/uL MPV 10.4 (9.4-12.3) fL Immature Gran % (Auto) 0.3 (0.0-0.4) % Neut % (Auto) 54.5 (45-73) % Lymph % (Auto) 27.0 (20-40) % [place] % (Auto) 13.2 H (2-11) % Eos % (Auto) 4.3 H (0-4) % Baso % (Auto) 0.7 (0-2) % Lymph # (Auto) 1.8 (1.2-4.9) X10*3/uL [place] # (Auto) 0.9 (0.1-1.2) X10*3/uL Eos # (Auto) 0.3 (0.0-0.4) X10*3/uL Baso # (Auto) 0.1 (0.0-0.2) X10*3/uL Abs Immat Gran (auto) 0.02 (0.00-0.03) X10*3/uL Absolute Neuts (auto) 3.7 (2.0-8.3) x10*3/uL Absolute Nucleated RBC 0.000 (0.0-0.012) X10*3/uL Nucleated RBC % (auto) 0.0 (0.0-0.2) /100WBC Sodium 144 (135-145) mmol/L Potassium 3.5 (3.3-5.1) mmol/L Chloride 113 H (96-108) mmol/L Carbon Dioxide 23 (22-29) mmol/L Anion Gap 12 (12-20) BUN 16 (9-16) mg/dL Creatinine 0.90 (0.5-1.4) mg/dL Estim Creat Clear Calc 79.1 Estimated GFR > 60 POC Glucose (60-115) mg/dL Random Glucose 102 (60-115) mg/dL Calcium 9.2 D (8.4-10.2) mg/dL Total Bilirubin 0.7 (0.0-1.0) mg/dL Direct Bilirubin 0.2 (0.0-0.5) mg/dL AST 21 (5-31) U/L ALT 18 (0-31) U/L Alkaline Phosphatase 92 (39-117) U/L Troponin I High Sens 3.1 3.0 (<3.5-17.0) ng/L B-Natriuretic Peptide < 10 (<100) pg/mL Total Protein 7.5 (6.5-8.0) g/dL Albumin 3.8 (3.5-5.0) g/dL Lipase 28 (8-78) U/L Urine Color Yellow Urine Appearance Clear Urine pH 6.0 (5.0-9.0) Ur Specific [place] >= 1.030 H (1.005-1.025) Urine Protein Trace (Neg-Trace) mg/dL Urine Glucose (UA) >=1000 H (Negative) mg/dL Urine Ketones Negative (Negative) mg/dL Urine Blood Negative (Negative) Urine Nitrite Negative (Negative) Ur Leukocyte Esterase Trace H (Negative) Urine RBC 3-5 H (0-2) /HPF Urine WBC 6-10 (0-5) /HPF Ur Squamous Epith Cells 0-2 (0-2) /HPF Urine Bacteria None Seen (None Seen) Hyaline Casts 0-2 (0-2) /LPF Influenza Type A (PCR) NEGATIVE (Negative) Influenza Type B (PCR) NEGATIVE (Negative) RSV RNA Qual (PCR) NEGATIVE (Negative) SARS-CoV-2 RNA (RT-PCR) NEGATIVE (Negative) 04/05/24 Range/Units 11:59 WBC (4.8-10.8) X10*3/uL RBC (4.20-5.50) X10*6/uL Hgb (12.0-16.0) g/dl Hct (37.0-47.0) % MCV (80.0-98.0) fL MCH (27.0-33.0) pg MCHC (31.0-35.0) g/dl RDW (11.0-16.0) % Plt Count (160-400) X10*3/uL MPV (9.4-12.3) fL Immature Gran % (Auto) (0.0-0.4) % Neut % (Auto) (45-73) % Lymph % (Auto) (20-40) % [place] % (Auto) (2-11) % Eos % (Auto) (0-4) % Baso % (Auto) (0-2) % Lymph # (Auto) (1.2-4.9) X10*3/uL [place] # (Auto) (0.1-1.2) X10*3/uL Eos # (Auto) (0.0-0.4) X10*3/uL Baso # (Auto) (0.0-0.2) X10*3/uL Abs Immat Gran (auto) (0.00-0.03) X10*3/uL Absolute Neuts (auto) (2.0-8.3) x10*3/uL Absolute Nucleated RBC (0.0-0.012) X10*3/uL Nucleated RBC % (auto) (0.0-0.2) /100WBC Sodium (135-145) mmol/L Potassium (3.3-5.1) mmol/L Chloride (96-108) mmol/L Carbon Dioxide (22-29) mmol/L Anion Gap (12-20) BUN (9-16) mg/dL Creatinine (0.5-1.4) mg/dL Estim Creat Clear Calc Estimated GFR POC Glucose 158 H (60-115) mg/dL Random Glucose (60-115) mg/dL Calcium (8.4-10.2) mg/dL Total Bilirubin (0.0-1.0) mg/dL Direct Bilirubin (0.0-0.5) mg/dL AST (5-31) U/L ALT (0-31) U/L Alkaline Phosphatase (39-117) U/L Troponin I High Sens (<3.5-17.0) ng/L B-Natriuretic Peptide (<100) pg/mL Total Protein (6.5-8.0) g/dL Albumin (3.5-5.0) g/dL Lipase (8-78) U/L Urine Color Urine Appearance Urine pH (5.0-9.0) Ur Specific [place] (1.005-1.025) Urine Protein (Neg-Trace) mg/dL Urine Glucose (UA) (Negative) mg/dL Urine Ketones (Negative) mg/dL Urine Blood (Negative) Urine Nitrite (Negative) Ur Leukocyte Esterase (Negative) Urine RBC (0-2) /HPF Urine WBC (0-5) /HPF Ur Squamous Epith Cells (0-2) /HPF Urine Bacteria (None Seen) Hyaline Casts (0-2) /LPF Influenza Type A (PCR) (Negative) Influenza Type B (PCR) (Negative) RSV RNA Qual (PCR) (Negative) SARS-CoV-2 RNA (RT-PCR) (Negative) Independent Interpretation I performed an independent interpretation of an: EKG and Plain X-Ray Radiology Impression Discussion of test interpretation with radiology: I have reviewed the radiologist's reading. Independent Historian Clinical information obtained from an independent historian. History obtained from or confirmed by: EMS External Record Review External record reviewed: Inpatient record, Office record, Outpatient record, Prior outpatient labs, Prior outpatient radiology, Primary care record and Outside ED record Tests considered The following testing was considered but not selected: As above Prescription Management I considered prescription management with: Pain Medication Chronic Conditions Patient?s care impacted by: Other Social Determinants Patient?s care significantly limited by Social Determinants of Health including: Inadequate housing, Low income, Problems related to primary support group, Unemployment and Other Social Determinant of Health Critical Care Time Critical Care Time Critical Care Time: Yes Total Critical Care Time: 40 Attestation: I have personally provided critical care time exclusive of time spent on separately billable procedures. Time includes review of lab data, radiology results, discussion with consultants, and monitoring for potential decompensation. Intervention performed as documented. Discharge Plan Discharge Clinical Impression: COPD exacerbation Patient Disposition: Home, Self-Care Instructions: COPD (Chronic Obstructive Pulmonary Disease) (DC) Additional Instructions: Your blood work and CT scans were reassuring Please continue to use your inhalers At addition Lasix as a water pill, take as prescribed with the next 3 days Prednisone as a steroid which will help with her shortness of breath. MiraLax for constipation, take as needed Please have close follow up with her doctor If your symptoms persist or worsen please return to the emergency department Prescriptions: New polyethylene glycol 3350 [Miralax] 17 gram/dose powder 17 g PO DAILY PRN (Reason: constipation) Qty: 119 0RF prednisone 20 mg tablet 40 mg PO DAILY 5 Days Qty: 10 0RF albuterol sulfate 90 mcg/actuation HFA aerosol inhaler 2 puff inhalation Q4-6H PRN (Reason: shortness of breath or wheezing) Qty: 6.7 0RF furosemide [Lasix] 20 mg tablet 20 mg PO DAILY 3 Days Qty: 3 0RF No Action oxycodone 5 mg tablet 5 mg PO Q6H PRN (Reason: pain (scale score 7-10)) Qty: 5 0RF Rx Instructions: Partial Fill upon patient request. acetaminophen [Tylenol] 325 mg capsule 325 mg PO Q6H PRN (Reason: pain) 8 Days Qty: 28 0RF Referrals: Gt Jade MD [Primary Care Provider] - 2 days Print Language: Angolan
[2024-04-05] MEDS: Albuterol Sulfate 5 MG, Albuterol/Iprat 2.5/0.5MG 3 ML 3 ML INHALE (09:05)
[2024-04-05] MEDS: methylPREDNISolone Sod Succ 125 MG/2 ML VIAL 60 MG IVPUSH (09:21)
[2024-04-05 09:31] LABS: B Type Natriuretic Peptide < 10 pg/mL (<100)
[2024-04-05] MEDS: cefTRIAXone sodium 1 GM VIAL IVPUSH (11:27)
[2024-04-05] MEDS: Azithromycin 500 MG in 0.9 % Sodium Chloride 250 ML 125 MG IV (11:55)
[2024-04-05 12:03] LABS: Glucose, Whole Blood 158 mg/dL (60-115)
[2024-04-05] MEDS: Albuterol Sulfate 2.5 MG, Albuterol/Iprat 2.5/0.5MG 3 ML 3 ML INHALE (14:01)
[2024-04-05] MEDS: Furosemide 40 MG TABLET PO (15:04)
== END 2024-04-05 15:18 | disposition home or self-care (01) ==
PROVIDERS: Physician Assistant; Emergency Provider Emergency Medicine; PCP Internal Medicine
DX: J44.1 Chronic obstructive pulmonary disease with (acute) exacerbation (principal); R06.02 Shortness of breath; R60.0 Localized edema; R05.9 Cough, unspecified; Z03.818 Encounter for observation for suspected exposure to other biological agents ruled out; Z79.899 Other long term (current) drug therapy
CPT/HCPCS: 0241U; 36415; 71046; 71250; 80048; 80076; 81001; 82947; 83690; 83880; 84484; 85025; 87040; 87086; 93005; 94640; 96365; 96366; 96375; 99284; J0456; J0696; J2919

== ENCOUNTER → 2024-04-05 10:36 | Outpatient (BNV) | payer MEDICARE, SELFPAY | PROVIDERS: Emergency Provider Emergency Medicine; PCP Internal Medicine; Visit Provider Radiology Diagnostic Radiology | DX: J81.0 Acute pulmonary edema (principal) | CPT/HCPCS: 71250 ==

== ENCOUNTER 2024-04-06 13:42 | Emergency (ER) | payer MEDICARE, SELFPAY ==
[2024-04-06 13:53] VITALS: BP 135/85; PULSE 90; O2SAT 97
[2024-04-06 14:27] VITALS: BP 143/76; PULSE 91; RESP 22; TEMP 36.7; O2SAT 96; BMI 39.3
--- NOTE | 2024-04-06 14:38 | ED.SOB ---
HPI - SOB/Dyspnea General Chief Complaint: Dyspnea Stated Complaint: DIFF BREATHING PER EMS Time Seen by Provider: 04/06/24 14:37 Source: patient, EMS, RN notes reviewed and old records reviewed Mode of arrival: EMS History of Present Illness ED Provider: Radha Andrade PA-C HPI Narrative: 68-year-old female with a past medical history of asthma, COPD, presenting to the ED via EMS complaining of continued SOB x few days. Patient was evaluated in our ED yesterday, diagnosis COPD exacerbation & discharged home with Prednisone, Albuterol inhaler, and Lasix which patient states has not been delivered to sober house yet, so has not taken any of these medications. Denies fever, chills, worsening pedal edema Related Data Previous Rx's ?Medication ?Instructions ?Recorded oxycodone 5 mg tablet 5 mg PO Q6H PRN pain (scale score 07/05/23 7-10) #5 tabs acetaminophen 325 mg capsule 325 mg PO Q6H PRN pain 8 days #28 10/14/23 (Tylenol) caps albuterol sulfate 90 mcg/actuation 2 puff inhalation Q4-6H PRN 04/05/24 aerosol inhaler shortness of breath or wheezing #6.7 grams furosemide 20 mg tablet (Lasix) 20 mg PO DAILY 3 days #3 tabs 04/05/24 polyethylene glycol 3350 17 17 g PO DAILY PRN constipation 04/05/24 gram/dose oral powder (Miralax) #119 grams prednisone 20 mg tablet 40 mg (2 x 20 mg) PO DAILY 5 days 04/05/24 #10 tabs Allergies Allergy/AdvReac Type Severity Reaction Status Date / Time egg AdvReac Abdominal Verified 04/06/24 14:29 Pain ibuprofen AdvReac Abdominal Verified 04/06/24 14:29 Pain tramadol AdvReac Abdominal Verified 04/06/24 14:29 Pain Review of Systems Review of Systems: Yes all other systems are reviewed and are negative Constitutional: Constitutional: Reports as per [facility] Past Medical History Attestation statement: The following information was validated with the patient. Source: old records reviewed Social History Social History Advance Directives: No Advance Directives Information Provided: Yes Do you have a plan to hurt others: No Plan Physical Exam Vital Signs: Vital Signs: Last Vital Signs Temp 98.2 F 04/06/24 19:46 Pulse 85 04/06/24 19:46 Resp 26 H 04/06/24 19:46 BP 143/78 H 04/06/24 19:46 Pulse Ox 93 04/06/24 19:46 O2 Del Method Room Air 04/06/24 19:46 BMI result Body Mass Index 39.3 Const: General: cooperative, healthy appearing and no acute distress Orientation/consciousness: patient oriented x3 Limitations: no limitations HEENT: Head: Yes normal to inspection and Yes atraumatic Ears: hearing grossly normal bilaterally General nose exam: Normal external nose present Face and sinus: Yes normal facial exam Eyes: General: appearance normal, both eyes and all related structures EOM: EOMs intact bilaterally Neck: Neck: Yes normal visual inspection and Yes no meningeal signs Resp: Effort & Inspection: normal respiratory effort and no respiratory distress Auscultation: wheezes expiratory wheezes (minimal) and throughout Cardio: Rate: regular rate Heart sounds: S1 normal heart sound present and S2 normal heart sound present Skin: Rashes: no rashes Wounds: no wounds Neuro: General: patient oriented x3, tone normal and no meningeal signs Cranial nerves: Yes CN's II-XII intact bilaterally Gait exam (Neuro): Normal gait present Extrem: Other: 1+ b/l LE pitting edema General: Yes normal to inspection Course Course Course Narrative: -potassium mildly low at 3.1 > p.o. repletion ordered. Labs otherwise reassuring. -1710--on re-evaluation patient reports symptomatic improvement after medications given in the ED including Solu-Medrol, magnesium, DuoNeb. Lungs with good air movement, end expiratory residual wheeze still appreciated will give additional DuoNeb and re-evaluate. > on re-evaluation patient's lungs are CTA. Ambulated patient with pulse ox and maintained saturations of 90-93% on RA. Patient feels comfortable for discharge at this time. Patient is medications that were prescribed yesterday will now be at her sober house/facility, which was a contributing factor to her revisit today. Results discussed with patient including worrisome signs and symptoms and strict return precautions, and when to return to the emergency department. They verbalized understanding and feel safe for discharge at this time. Medications Administered Discontinued Medications Generic Name Dose Route Start Last Admin Trade Name Aminata PRN Reason Stop Dose Admin Albuterol Sulfate 2.5 mg/ 5 mg 04/06/24 15:00 04/06/24 15:00 Albuterol Sulfate 2.5 mg INHALE 04/06/24 15:41 5 mg Q20M EDILMA Administration Albuterol Sulfate 2.5 mg/ 5 mg 04/06/24 17:04 04/06/24 17:07 Albuterol Sulfate 2.5 mg INHALE 04/06/24 17:05 5 mg ONCE ONE Administration Magnesium Sulfate 2 gm in 50 mls @ 25 mls/hr 04/06/24 14:42 04/06/24 17:06 Magnesium Sulfate/H2o IV 04/06/24 16:41 Infused ONCE ONE Infusion Methylprednisolone Sodium Succinate 60 mg 04/06/24 14:42 04/06/24 15:06 Methylprednisolone Sod Succ 125 Mg/2 Ml Vial IVPUSH 04/06/24 14:43 60 mg ONCE ONE Administration Potassium Chloride 60 meq 04/06/24 16:06 04/06/24 16:25 Potassium Chloride Packet 20 Meq Packet PO 04/06/24 16:07 60 meq ONCE ONE Administration Medical Decision Making Medical Decision Making [facility] Narrative: 68-year-old female with a past medical history of asthma, COPD, presenting to the ED via EMS complaining of continued SOB x few days. On exam vital signs stable, NAD, nontoxic appearing, talking in complete sentences, no respiratory distress, minimal diffuse expiratory wheeze appreciated. Concern for continued COPD exacerbation with medication noncompliance. Lower suspicion for acute CHF. Lower suspicion for ACS/PE, DVT, dissection at this time Plan: EKG, repeat labs, ED bronch protocol, IV Solu-Medrol, IV magnesium, re-evaluate No need for repeat viral testing or CXR today. Patient had CXR and chest CT yesterday, chest CT without acute airspace disease, concerning for mild interstitial lung edema in the correct clinical setting. Please refer to course for remaining clinical decision making, interpretation of labs/imaging results, and discussions with consultants and/or family members. Differential Diagnosis Differential Diagnoses: The differential diagnosis associated with the presentation includes As above Admission/Observation Consideration of admission/observation: Escalation of care including admission/observation considered Lab Data [facility] Lab Attestation statement: I reviewed the patient's lab results. 04/06/24 15:05 04/06/24 15:05 Labs: Lab Results 04/06/24 Range/Units 15:05 WBC 9.3 (4.8-10.8) X10*3/uL RBC 5.27 (4.20-5.50) X10*6/uL Hgb 11.7 L (12.0-16.0) g/dl Hct 37.3 (37.0-47.0) % MCV 70.8 L (80.0-98.0) fL MCH 22.2 L (27.0-33.0) pg MCHC 31.4 (31.0-35.0) g/dl RDW 16.5 H (11.0-16.0) % Plt Count 234 (160-400) X10*3/uL MPV 10.5 (9.4-12.3) fL Immature Gran % (Auto) 0.4 (0.0-0.4) % Neut % (Auto) 57.0 (45-73) % Lymph % (Auto) 28.7 (20-40) % [place] % (Auto) 12.0 H (2-11) % Eos % (Auto) 1.3 (0-4) % Baso % (Auto) 0.6 (0-2) % Lymph # (Auto) 2.7 (1.2-4.9) X10*3/uL [place] # (Auto) 1.1 (0.1-1.2) X10*3/uL Eos # (Auto) 0.1 (0.0-0.4) X10*3/uL Baso # (Auto) 0.1 (0.0-0.2) X10*3/uL Abs Immat Gran (auto) 0.04 H (0.00-0.03) X10*3/uL Absolute Neuts (auto) 5.3 (2.0-8.3) x10*3/uL Absolute Nucleated RBC 0.000 (0.0-0.012) X10*3/uL Nucleated RBC % (auto) 0.0 (0.0-0.2) /100WBC Sodium 142 (135-145) mmol/L Potassium 3.1 L (3.3-5.1) mmol/L Chloride 110 H (96-108) mmol/L Carbon Dioxide 23 (22-29) mmol/L Anion Gap 12 (12-20) BUN 18 H (9-16) mg/dL Creatinine 0.86 (0.5-1.4) mg/dL Estim Creat Clear Calc 82.6 Estimated GFR > 60 Random Glucose 111 (60-115) mg/dL Calcium 8.9 (8.4-10.2) mg/dL Total Bilirubin 0.4 (0.0-1.0) mg/dL Direct Bilirubin 0.1 (0.0-0.5) mg/dL AST 24 (5-31) U/L ALT 20 (0-31) U/L Alkaline Phosphatase 87 (39-117) U/L B-Natriuretic Peptide 30 (<100) pg/mL Total Protein 7.4 (6.5-8.0) g/dL Albumin 3.7 (3.5-5.0) g/dL Independent Interpretation I performed an independent interpretation of an: EKG and Plain X-Ray Radiology Impression Discussion of test interpretation with radiology: I have reviewed the radiologist's reading. Independent Historian Clinical information obtained from an independent historian. History obtained from or confirmed by: EMS External Record Review External record reviewed: Inpatient record, Office record, Outpatient record, Prior outpatient labs, Prior outpatient radiology, Primary care record and Outside ED record Tests considered The following testing was considered but not selected: As above Prescription Management I considered prescription management with: Pain Medication and Antibiotic Social Determinants Patient?s care significantly limited by Social Determinants of Health including: Inadequate housing, Low income, Alcoholism and drug addiction in family, Problems related to primary support group, Unemployment, Problems related to employment and Other Social Determinant of Health Discharge Plan Discharge Clinical Impression: COPD (chronic obstructive pulmonary disease) Patient Disposition: Home, Self-Care Instructions: COPD (Chronic Obstructive Pulmonary Disease) (DC) Additional Instructions: PLEASE TAKE MEDICATIONS THAT WERE PRESCRIBED TO YOU YESTERDAY IN THE EMERGENCY DEPARTMENT YOU NEED TO USE YOUR INHALER CALL YOUR PRIMARY CARE DOCTOR FOR CLOSE FOLLOW-UP AND FOR A NEBULIZER PRESCRIPTION IF HER SYMPTOMS PERSIST OR WORSENING OF CONSTANT WORSENING CHEST PAIN, SHORTNESS OF BREATH, FEVER RETURN TO THE ED Prescriptions: No Action oxycodone 5 mg tablet 5 mg PO Q6H PRN (Reason: pain (scale score 7-10)) Qty: 5 0RF Rx Instructions: Partial Fill upon patient request. polyethylene glycol 3350 [Miralax] 17 gram/dose powder 17 g PO DAILY PRN (Reason: constipation) Qty: 119 0RF prednisone 20 mg tablet 40 mg PO DAILY 5 Days Qty: 10 0RF albuterol sulfate 90 mcg/actuation HFA aerosol inhaler 2 puff inhalation Q4-6H PRN (Reason: shortness of breath or wheezing) Qty: 6.7 0RF furosemide [Lasix] 20 mg tablet 20 mg PO DAILY 3 Days Qty: 3 0RF acetaminophen [Tylenol] 325 mg capsule 325 mg PO Q6H PRN (Reason: pain) 8 Days Qty: 28 0RF Referrals: Gt Jade MD [Primary Care Provider] - 2 days Interventions: ED Discharge Assessment Last Done: 04/06/24 19:46 Discharge Date/Time: 04/06/24 19:47 Print Language: Kyrgyz
--- NOTE | 2024-04-06 14:42 | ECG_ITS ---
Test Reason : sob Blood Pressure : / mmHG Vent. Rate : 081 BPM Atrial Rate : 081 BPM P-R Int : 172 ms QRS Dur : 086 ms QT Int : 404 ms P-R-T Axes : 066 027 034 degrees QTc Int : 469 ms Normal sinus rhythm Normal ECG When compared with ECG of 05-APR-2024 06:47, Nonspecific T wave abnormality no longer evident in Anterior leads Referred By: Radha Andrade Electronically Signed By:Kostas Tobar
[2024-04-06 14:52] VITALS: PULSE 80; RESP 26; O2SAT 96
[2024-04-06] MEDS: Albuterol Sulfate 2.5 MG, Albuterol Sulfate (0.083%) 2.5 MG 5 MG INHALE ×2 (15:00→17:07)
[2024-04-06] MEDS: Magnesium Sulfate/H2O 2 GM/50 ML PIGGYBACK IV (15:06)
[2024-04-06] MEDS: methylPREDNISolone Sod Succ 125 MG/2 ML VIAL 60 MG IVPUSH (15:06)
[2024-04-06 15:28] LABS: MANUAL DIFF FLAG NO
[2024-04-06 15:30] LABS: Basophils Absolute Auto 0.1 X10*3/uL (0.0-0.2); Basophils Percent Auto 0.6 % (0-2); Eosinophils Absolute Auto 0.1 X10*3/uL (0.0-0.4); Eosinophils Percent Auto 1.3 % (0-4); Hematocrit 37.3 % (37.0-47.0); Hemoglobin 11.7 g/dl (12.0-16.0); Imm Gran Abs Auto 0.04 X10*3/uL (0.00-0.03); Imm Gran Pct Auto 0.4 % (0.0-0.4); Lymphocytes Absolute Auto 2.7 X10*3/uL (1.2-4.9); Lymphocytes Percent Auto 28.7 % (20-40); Mean Corpuscular HGB Conc 31.4 g/dl (31.0-35.0); Mean Corpuscular Hemoglobin 22.2 pg (27.0-33.0); Mean Corpuscular Volume 70.8 fL (80.0-98.0); Mean Platelet Volume 10.5 fL (9.4-12.3); Monocytes Absolute Auto 1.1 X10*3/uL (0.1-1.2); Neutrophils Absolute Auto 5.3 x10*3/uL (2.0-8.3); Platelet Count 234 X10*3/uL (160-400); Red Blood Count 5.27 X10*6/uL (4.20-5.50); Red Cell Distribution Width 16.5 % (11.0-16.0); White Blood Count 9.3 X10*3/uL (4.8-10.8)
[2024-04-06 15:55] LABS: Albumin Level 3.7 g/dL (3.5-5.0); Anion Gap 12 (12-20); Aspartate Amino Transferase 24 U/L (5-31); Bilirubin Direct 0.1 mg/dL (0.0-0.5); Bilirubin Total 0.4 mg/dL (0.0-1.0); Blood Urea Nitrogen 18 mg/dL (9-16); Calcium 8.9 mg/dL (8.4-10.2); Carbon Dioxide 23 mmol/L (22-29); Chloride 110 mmol/L (96-108); Creatinine Clr Calc Pharmacy 82.6; Estimated Glomerular Filt Rate > 60; Glucose Random 111 mg/dL (60-115); Potassium 3.1 mmol/L (3.3-5.1); Sodium 142 mmol/L (135-145); Total Protein 7.4 g/dL (6.5-8.0)
[2024-04-06 16:20] LABS: Alanine Aminotransferase 20 U/L (0-31); Alkaline Phosphatase 87 U/L (39-117)
[2024-04-06 16:22] LABS: B Type Natriuretic Peptide 30 pg/mL (<100)
[2024-04-06] MEDS: Potassium Chloride Packet 20 MEQ PACKET 60 MEQ PO (16:25)
[2024-04-06 17:07] VITALS: PULSE 86; RESP 20; O2SAT 91
[2024-04-06 17:16] VITALS: BP 143/78; PULSE 85; RESP 26; TEMP 36.8; O2SAT 93
--- NOTE | 2024-04-06 19:28 | PC.NURSE ---
this rn assumed care of pt , pt noted to be up for d/c at this time, attempting to get pt ride with ana.
[2024-04-06 19:46] VITALS: BP 143/78; PULSE 85; RESP 26; TEMP 36.8; O2SAT 93
--- NOTE | 2024-04-06 19:46 | PC.NURSE ---
pt assisted into lyft at this time.
== END 2024-04-06 19:47 | disposition home or self-care (01) ==
PROVIDERS: Physician Assistant; Emergency Provider Student in an Organized Health Care Education/Training Program; PCP Internal Medicine
DX: R06.00 Dyspnea, unspecified (principal); R06.02 Shortness of breath; J44.9 Chronic obstructive pulmonary disease, unspecified; R60.0 Localized edema; Z79.899 Other long term (current) drug therapy
CPT/HCPCS: 36415; 80048; 80076; 83880; 85025; 93005; 94640; 96365; 96366; 96375; 99285; J2919; J3475

== ENCOUNTER → 2024-04-06 14:42 | Outpatient (BNV) | payer MEDICARE, SELFPAY | PROVIDERS: Emergency Provider Student in an Organized Health Care Education/Training Program; PCP Internal Medicine; Visit Provider Internal Medicine Cardiovascular Disease | DX: R06.02 Shortness of breath (principal) | CPT/HCPCS: 93010 ==

== ENCOUNTER 2024-06-16 19:08 | Emergency (ER) | payer MEDICARE, SELFPAY ==
--- NOTE | ~2024-06-16 | XR_ITS ---
CLINICAL HISTORY: shortnes of breath 1 view chest x-ray Comparison: CR/SR - XR CHEST 2V - 04/05/24 07:49 EST Findings: No consolidation or effusion. Mild cardiomegaly. No acute fracture. IMPRESSION: 1. No acute findings. This document has been electronically signed by: Everardo Dutton MD on 06/16/2024 20:31:27
[2024-06-16 19:26] VITALS: BP 130/90; BP 96/59; PULSE 87; PULSE 88; RESP 20; TEMP 36.4; O2SAT 93; O2SAT 99; BMI 39.2
--- NOTE | 2024-06-16 19:29 | ED.GENADULT ---
HPI - General Adult General Chief complaint: Extremity Injury, Lower Stated complaint: Bi lat leg edema, pain when ambulating Time Seen by Provider: 06/16/24 23:17 Source: patient Limitations: no limitations History of Present Illness ED Provider: Anaya Kent PA-C HPI narrative: 68-year-old female with a history of morbid obesity, asthma, COPD, diabetes, CHF presents with bilateral lower extremity swelling and pain of unclear duration. Patient states the left lower extremity is subtly more swollen versus the right. Patient just completed a course of cephalexin for cellulitis. Denies chest pain, shortness of breath, orthopnea. No fevers. Related Data Previous Rx's ?Medication ?Instructions ?Recorded oxycodone 5 mg tablet 5 mg PO Q6H PRN pain (scale score 07/05/23 7-10) #5 tabs acetaminophen 325 mg capsule 325 mg PO Q6H PRN pain 8 days #28 10/14/23 (Tylenol) caps albuterol sulfate 90 mcg/actuation 2 puff inhalation Q4-6H PRN 04/05/24 aerosol inhaler shortness of breath or wheezing #6.7 grams furosemide 20 mg tablet (Lasix) 20 mg PO DAILY 3 days #3 tabs 04/05/24 polyethylene glycol 3350 17 17 g PO DAILY PRN constipation 04/05/24 gram/dose oral powder (Miralax) #119 grams prednisone 20 mg tablet 40 mg (2 x 20 mg) PO DAILY 5 days 04/05/24 #10 tabs Allergies Allergy/AdvReac Type Severity Reaction Status Date / Time egg AdvReac Abdominal Verified 06/16/24 19:29 Pain ibuprofen AdvReac Abdominal Verified 06/16/24 19:29 Pain tramadol AdvReac Abdominal Verified 06/16/24 19:29 Pain Review of Systems Review of Systems: Yes all other systems are reviewed and are negative Constitutional: Constitutional: Denies fatigue and Denies fever(s) Cardiovascular: Cardiovascular: Denies chest pain, Reports pedal edema, Reports leg edema and Denies dyspnea Respiratory: Respiratory: Denies cough and Denies dyspnea Endocrine: Endocrine: Denies fatigue [facility] Past Medical History Attestation statement: The following information was validated with the patient. Social History Social History Advance Directives: No Advance Directives Information Provided: Yes Do you have a plan to hurt others: No Plan Physical Exam ED Vital Signs: Vital Signs - 24 hr 06/16/24 19:26 06/16/24 23:31 Temperature 97.6 F Pulse Rate 87 88 Respiratory Rate 20 20 Blood Pressure 96/59 L 101/67 Pulse Oximetry 93 93 Oxygen Delivery Method Room Air Room Air BMI result Body Mass Index 39.2 Const Other: Alert Orientation/consciousness: patient oriented x3 Resp Effort & Inspection: normal respiratory effort Cardio Other: Normal peripheral perfusion, bilateral pitting edema Skin Other: Warm dry no rash Neuro General: patient oriented x3, no focal motor deficits and CN's II-XI intact bilaterally Extrem Other: We will lower extremities are symmetric, they are both edematous, without overlying erythema, the skin is dry, hyperpigmented and thickened consistent with venous insufficiency. Psych Other: Cooperative Course Course Course Narrative: RME, this is a rapid medical exam performed by Yan Holloway please refer to primary provider for complete H&P- 68-year-old female with a past medical history significant for diabetes, CHF presents for evaluation of bilateral leg swelling, left greater than right. Patient just finished a week's worth of cephalexin reports that her legs are more swollen. Plan for labs, blood cultures, venous ultrasound of the lower extremities, chest x-ray. Medical Decision Making Medical Decision Making [facility] Narrative: 68-year-old female with a history of morbid obesity, asthma, COPD, diabetes, CHF presents with bilateral lower extremity swelling and pain of unclear duration. Patient states the left lower extremity is subtly more swollen versus the right. Patient just completed a course of cephalexin for cellulitis. Denies chest pain, shortness of breath, orthopnea. No fevers. Problem: Obesity, heart failure, diabetes History: Per patient I have considered the following differential diagnoses: Dependent edema, venous insufficiency, DVT, cellulitis, heart failure exacerbation Plan: Screening labs were obtained from triage, as well as a chest x-ray . This is likely dependent edema with underlying venous insufficiency, this is chronic for the patient. She has no leukocytosis she is not febrile to suggest cellulitis. Do not think this is heart failure exacerbation, her BNP is negative, the chest x-ray is clear, she is not hypoxic, she is not overtly hypertensive. There was no objective unilateral calf swelling, they are symmetric, she does not require DVT studies. I have independently reviewed the following tests: Labs: No leukocytosis, not anemic, no electrolyte abnormality, BNP less than 10, viral panel neg Chest x-ray:MPRESSION: 1. No acute findings. This document has been electronically signed by: Everardo Dutton MD on 06/16/2024 20:31:27 Lab Data 06/16/24 19:49 06/16/24 19:49 Labs: Lab Results 06/16/24 Range/Units 19:49 WBC 8.0 (4.8-10.8) X10*3/uL RBC 5.27 (4.20-5.50) X10*6/uL Hgb 11.6 L (12.0-16.0) g/dl Hct 37.1 (37.0-47.0) % MCV 70.4 L (80.0-98.0) fL MCH 22.0 L (27.0-33.0) pg MCHC 31.3 (31.0-35.0) g/dl RDW 17.2 H (11.0-16.0) % Plt Count 259 (160-400) X10*3/uL MPV 9.6 (9.4-12.3) fL Immature Gran % (Auto) 0.2 (0.0-0.4) % Neut % (Auto) 59.2 (45-73) % Lymph % (Auto) 26.3 (20-40) % [place] % (Auto) 10.0 (2-11) % Eos % (Auto) 3.4 (0-4) % Baso % (Auto) 0.9 (0-2) % Lymph # (Auto) 2.1 (1.2-4.9) X10*3/uL [place] # (Auto) 0.8 (0.1-1.2) X10*3/uL Eos # (Auto) 0.3 (0.0-0.4) X10*3/uL Baso # (Auto) 0.1 (0.0-0.2) X10*3/uL Abs Immat Gran (auto) 0.02 (0.00-0.03) X10*3/uL Absolute Neuts (auto) 4.8 (2.0-8.3) x10*3/uL Absolute Nucleated RBC 0.000 (0.0-0.012) X10*3/uL Nucleated RBC % (auto) 0.0 (0.0-0.2) /100WBC Sodium 139 (135-145) mmol/L Potassium 3.8 D (3.3-5.1) mmol/L Chloride 111 H (96-108) mmol/L Carbon Dioxide 19 L (22-29) mmol/L Anion Gap 13 (12-20) BUN 21 H (9-16) mg/dL Creatinine 0.99 (0.5-1.4) mg/dL Estim Creat Clear Calc 71.7 Estimated GFR 56 Random Glucose 101 (60-115) mg/dL Lactic Acid 1.2 (0.5-2.0) mmol/L Calcium 9.4 (8.4-10.2) mg/dL Total Bilirubin 0.4 (0.0-1.0) mg/dL AST 20 (5-31) U/L ALT 24 (0-31) U/L Alkaline Phosphatase 100 (39-117) U/L B-Natriuretic Peptide < 10 (<100) pg/mL Total Protein 8.2 H (6.5-8.0) g/dL Albumin 4.0 (3.5-5.0) g/dL Lipase 29 (8-78) U/L Influenza Type A (PCR) NEGATIVE (Negative) Influenza Type B (PCR) NEGATIVE (Negative) RSV RNA Qual (PCR) NEGATIVE (Negative) SARS-CoV-2 RNA (RT-PCR) NEGATIVE (Negative) Discharge Plan Discharge Clinical Impression: Dependent edema, Chronic venous insufficiency Patient Disposition: Home, Self-Care Instructions: Venous Insufficiency (DC), Leg Edema (ED) Additional Instructions: All of your labs were normal, the chest x-ray is clear. You have dependent edema. This is from week veins and poor circulation. See home care instructions. Exercise is important in improving your circulation. When you ambulate, you should be wearing compression stockings. When you are resting, you should elevate your legs above the level of your heart. Follow up with your primary care provider as needed. Prescriptions: No Action oxycodone 5 mg tablet 5 mg PO Q6H PRN (Reason: pain (scale score 7-10)) Qty: 5 0RF Rx Instructions: Partial Fill upon patient request. polyethylene glycol 3350 [Miralax] 17 gram/dose powder 17 g PO DAILY PRN (Reason: constipation) Qty: 119 0RF prednisone 20 mg tablet 40 mg PO DAILY 5 Days Qty: 10 0RF albuterol sulfate 90 mcg/actuation HFA aerosol inhaler 2 puff inhalation Q4-6H PRN (Reason: shortness of breath or wheezing) Qty: 6.7 0RF furosemide [Lasix] 20 mg tablet 20 mg PO DAILY 3 Days Qty: 3 0RF acetaminophen [Tylenol] 325 mg capsule 325 mg PO Q6H PRN (Reason: pain) 8 Days Qty: 28 0RF Print Language: Yoruba
[2024-06-16 20:01] LABS: MANUAL DIFF FLAG NO
[2024-06-16 20:02] LABS: Basophils Absolute Auto 0.1 X10*3/uL (0.0-0.2); Basophils Percent Auto 0.9 % (0-2); Eosinophils Absolute Auto 0.3 X10*3/uL (0.0-0.4); Eosinophils Percent Auto 3.4 % (0-4); Hematocrit 37.1 % (37.0-47.0); Hemoglobin 11.6 g/dl (12.0-16.0); Imm Gran Abs Auto 0.02 X10*3/uL (0.00-0.03); Imm Gran Pct Auto 0.2 % (0.0-0.4); Lymphocytes Absolute Auto 2.1 X10*3/uL (1.2-4.9); Lymphocytes Percent Auto 26.3 % (20-40); Mean Corpuscular HGB Conc 31.3 g/dl (31.0-35.0); Mean Corpuscular Volume 70.4 fL (80.0-98.0); Mean Platelet Volume 9.6 fL (9.4-12.3); Monocytes Absolute Auto 0.8 X10*3/uL (0.1-1.2); Neutrophils Absolute Auto 4.8 x10*3/uL (2.0-8.3); Neutrophils Percent Auto 59.2 % (45-73); Platelet Count 259 X10*3/uL (160-400); Red Blood Count 5.27 X10*6/uL (4.20-5.50); Red Cell Distribution Width 17.2 % (11.0-16.0)
[2024-06-16 20:17] LABS: Lactic Acid 1.2 mmol/L (0.5-2.0)
[2024-06-16 20:18] LABS: Alanine Aminotransferase 24 U/L (0-31); Alkaline Phosphatase 100 U/L (39-117); Anion Gap 13 (12-20); Aspartate Amino Transferase 20 U/L (5-31); Bilirubin Total 0.4 mg/dL (0.0-1.0); Blood Urea Nitrogen 21 mg/dL (9-16); Calcium 9.4 mg/dL (8.4-10.2); Carbon Dioxide 19 mmol/L (22-29); Chloride 111 mmol/L (96-108); Creatinine Clr Calc Pharmacy 71.7; Estimated Glomerular Filt Rate 56; Glucose Random 101 mg/dL (60-115); Lipase 29 U/L (8-78); Potassium 3.8 mmol/L (3.3-5.1); Sodium 139 mmol/L (135-145); Total Protein 8.2 g/dL (6.5-8.0)
[2024-06-16 20:23] LABS: B Type Natriuretic Peptide < 10 pg/mL (<100)
[2024-06-16 20:40] LABS: Influenza A PCR NEGATIVE (Negative); Influenza B PCR NEGATIVE (Negative); Resp Syncy Virus RNA Qual PCR NEGATIVE (Negative); SARS COV2 PCR INHOUSE NEGATIVE (Negative)
[2024-06-16 23:31] VITALS: BP 101/67; PULSE 88; RESP 20; O2SAT 93
[2024-06-17 01:52] VITALS: BP 101/67; PULSE 88; RESP 20; TEMP 36.9; O2SAT 93
== END 2024-06-17 01:53 | disposition home or self-care (01) ==
PROVIDERS: Physician Assistant; Emergency Provider Emergency Medicine; PCP Internal Medicine
DX: R60.0 Localized edema (principal); I87.2 Venous insufficiency (chronic) (peripheral); R06.02 Shortness of breath; Z03.818 Encounter for observation for suspected exposure to other biological agents ruled out; Z79.899 Other long term (current) drug therapy
CPT/HCPCS: 0241U; 71045; 80053; 83605; 83690; 83880; 85025; 87040; 99283

== ENCOUNTER → 2024-06-16 19:29 | Outpatient (BNV) | payer MEDICARE, SELFPAY | PROVIDERS: Visit Provider Radiology Diagnostic Radiology | DX: R06.02 Shortness of breath (principal) | CPT/HCPCS: 71045 ==